=== PATIENT | female | born 1995 | race Caucasian/White ===

== ENCOUNTER 2022-02-17 20:49 | Emergency (ER) | payer OTHER, MEDICAID, SELFPAY ==
[2022-02-17 21:02] VITALS: BP 144/65; PULSE 81; RESP 18; TEMP 36.6; O2SAT 99; BMI 39.4
[2022-02-17 21:45] LABS: Add Manual Diff / Slide Review NO; Basophils Absolute Auto 0 /uL (0-100); Basophils Percent Auto 0.3 % (0-2); Eosinophils Absolute Auto 100 /uL (0-450); Eosinophils Percent Auto 1.3 % (2-4); Hematocrit 40.4 % (36-46); Hemoglobin 13.6 g/dL (12.0-16.0); Lymphocytes Absolute Auto 2700 /uL (1100-4500); Lymphocytes Percent Auto 30.3 % (25-40); Mean Corpuscular HGB Conc 33.6 % (30-36); Mean Corpuscular Hemoglobin 29.6 PG (26-34); Monocytes Absolute Auto 700 /uL (0-900); Monocytes Percent Auto 7.5 % (3-14); Neutrophils Absolute Auto 5300 /uL (1500-7000); Neutrophils Percent Auto 60.6 % (50-75); Platelet Count 425 X10^3/uL (150-400); Red Blood Cell Count 4.58 X10^6/uL (4.0-5.2); Red Cell Distribution Width 13.4 % (11.6-14.8); White Blood Cell Count 8.8 X10^3/uL (4.5-11.0)
[2022-02-17 22:00] LABS: Acetaminophen < 10 ug/mL (10-30); Alanine Aminotransferase 35 IU/L (<35); Albumin Globulin Ratio 1.5 (1.0-2.8); Alkaline Phosphatase 46 U/L (38-126); Aspartate Aminotransferase 32 IU/L (14-36); Bilirubin Total 0.4 mg/dL (0.2-1.3); Blood Urea Nitrogen 12 mg/dL (7-17); Calcium 9.3 mg/dL (8.4-10.2); Carbon Dioxide 29 mmol/L (22-32); Chloride 103 mmol/L (98-107); Estimated Glomerular Filt Rate > 60 mL/min (>60); Ethanol (ETOH) < 10 mg/dL; Globulin 3.4 g/dL (1.7-4.1); Glucose 96 mg/dL (70-100); HEMOLYSIS < 15 (0-50); Potassium 3.8 mmol/L (3.4-5.1); Salicylate < 1.0 mg/dL (<20); Sodium 140 mmol/L (137-145); Total Protein 8.4 g/dL (6.3-8.2)
[2022-02-17 22:19] LABS: Free T4, Direct Thyroxine 1.13 ng/dL (0.78-2.19)
[2022-02-17 22:33] LABS: Thyroid Stimulating Hormone 1.18 uIU/mL (0.47-4.68)
[2022-02-17 22:49] LABS: COVID19 -Nasal RAPID Negative (Negative)
[2022-02-18 01:12] LABS: UR Morphine/Opiate cutoff 300 Negative (Negative); Ur Creatinine Normal (Normal); Ur Specific Gravity Normal (Normal); Urine Amphetamines Negative (Negative); Urine Barbiturates Negative (Negative); Urine Benzodiazepines Negative (Negative); Urine Cocaine Negative (Negative); Urine MDMA Negative (Negative); Urine Methadone Negative (Negative); Urine Methamphetamines Negative (Negative); Urine Oxycodone Negative (Negative); Urine Phencyclidine Negative (Negative); Urine Tetrahydrocannabinol Positive (Negative); Urine Tricyclic Antidepressant Negative (Negative); Urine pH Normal (Normal)
[2022-02-18 01:19] LABS: Bacteria Urine Many (>30); RBC Urine None Seen (0-5/HPF); Squamous Epithelial Cell Urine 1-5 /HPF (0-5/HPF); WBC Urine 1-5/HPF (0-5/HPF)
--- NOTE | 2022-02-18 01:33 | ED.PSYCH ---
HPI - Psych <Dustin Cruz DO - Last Filed: 02/18/22 19:31> General Chief Complaint: Psychiatric Symptoms Stated Complaint: Anxiety attack Time Seen by Provider: 02/17/22 20:58 Source: patient Mode of arrival: Ambulatory History of Present Illness HPI Narrative: 26-year-old female daily smoker with history of anxiety states that she is having suicidal ideation with a plan. She has a history of anxiety and has been having increased ?attacks for the past week, this is certainly contributing to her suicidal ideation, her plans include anything from jumping off a bridge, to crashing her car to overdose among others. She is unclear exactly what made her feel profoundly anxious but she is rather certain this is contributing to her suicidal ideation. She has made prior attempts at hurting herself but is very reluctant to discuss with much detail but states nobody else new. She denies any prior hospitalizations or visits to the emergency department for suicidal ideation. She is here of her own volition and wants help controlling her anxiety and suicidal thoughts Related Data Home Medications Medication Instructions Recorded Confirmed No Known Home Medications 02/17/22 02/17/22 Allergies Allergy/AdvReac Type Severity Reaction Status Date / Time No Known Drug Allergies Allergy Verified 02/17/22 21:09 Patient History <Dustin Cruz DO - Last Filed: 02/18/22 19:31> Social History Smoking Status: Current every day smoker Smoking Status: Current every day smoker alcohol intake frequency: holidays/special occasions only Substance Use Type: marijuana Exam <Dustin Cruz DO - Last Filed: 02/18/22 19:31> Narrative Exam Narrative: GENERAL: [26] year old patient appears stated age. Well-developed patient, in mild distress. HEAD: Atraumatic. Normocephalic. EYES: Pupils equal round and reactive. Extraocular motions intact. No scleral icterus. No injection or drainage. ENT: Nose without bleeding, purulent drainage. Throat without erythema, tonsillar hypertrophy or exudate. Airway patent. NECK: Trachea midline. Non tender CARDIOVASCULAR: Regular rate and rhythm without murmurs, gallops, or rubs. RESPIRATORY: Clear to auscultation. Breath sounds equal bilaterally. No wheezes, rales, or rhonchi. GASTROINTESTINAL: Abdomen soft, non-tender, nondistended. EXTREMITIES: No edema or joint tenderness. BACK: Nontender without deformity or crepitance. No flank tenderness. NEURO: AOx3. SKIN: No rash or erythema of visible areas Initial Vital Signs Initial Vital Signs: Vital Signs Temperature 98 F 02/17/22 21:02 Pulse Rate 81 02/17/22 21:02 Respiratory Rate 18 02/17/22 21:02 Blood Pressure 144/65 H 02/17/22 21:02 Pulse Oximetry 99 02/17/22 21:02 <Sandrita Adam, DO - Last Filed: 02/18/22 17:49> Initial Vital Signs Initial Vital Signs: Vital Signs Temperature 98 F 02/17/22 21:02 Pulse Rate 81 02/17/22 21:02 Respiratory Rate 18 02/17/22 21:02 Blood Pressure 144/65 H 02/17/22 21:02 Pulse Oximetry 99 02/17/22 21:02 Course <Dustin Cruz DO - Last Filed: 02/18/22 19:31> Orders Ordered: ED Orders 02/17/22 21:36 Acetaminophen Stat Complete Blood Count AUTO DIFF Stat Comprehensive Metabolic Panel Stat Ethanol (ETOH) Stat Free T4, Direct Thyroxine Stat Salicylate Stat Thyroid Stimulating Hormone Stat 02/17/22 21:58 COVID19 -Nasal RAPID/Pre-Proc Stat 02/18/22 00:55 Urine Culture Stat Urine Drug Screen, Rapid Stat Urine Microscopic Stat 02/18/22 01:44 Consult to MEDICAL SERVICE REPRESENTATIVE - Electronics Technology Instructor Stat Reevaluation(s) Reevaluation #1: patient is resting comfortably. She is medically cleared and appropriate for MEDICAL SERVICE REPRESENTATIVE evaluation Time: 00:55 Vital Signs Vital signs: Vital Signs - 8 hr 02/18/22 13:55 02/18/22 16:39 Temperature 97.7 F 97.9 F Pulse Rate 70 80 Respiratory Rate 16 18 Blood Pressure 117/69 110/70 Pulse Oximetry 99 98 <Sandrita Adam DO - Last Filed: 02/18/22 17:49> Orders Ordered: ED Orders 02/17/22 21:36 Acetaminophen Stat Complete Blood Count AUTO DIFF Stat Comprehensive Metabolic Panel Stat Ethanol (ETOH) Stat Free T4, Direct Thyroxine Stat Salicylate Stat Thyroid Stimulating Hormone Stat 02/17/22 21:58 COVID19 -Nasal RAPID/Pre-Proc Stat 02/18/22 00:55 Urine Culture Stat Urine Drug Screen, Rapid Stat Urine Microscopic Stat 02/18/22 01:44 Consult to MEDICAL SERVICE REPRESENTATIVE - Electronics Technology Instructor Stat Reevaluation(s) Reevaluation #2: Patient seen independently evaluated by myself. Patient was seen by social work, currently searching for voluntary placement. For mental health social worker had to leave unexpectedly due to an emergency and ups her mental health social worker is taking over care. Currently searching for bed availability. Patient is medically cleared. Discussed with patient she is interested in voluntary placement. If bed availability is not present today she is unsure if she would wish to return home or keep searching overnight and into tomorrow. We discussed we can revisit this if we are unsuccessful in finding placement today. She is currently agreeable with this plan. All questions answered. Time: 15:44 Vital Signs Vital signs: Vital Signs - 8 hr 02/18/22 13:55 02/18/22 16:39 Temperature 97.7 F 97.9 F Pulse Rate 70 80 Respiratory Rate 16 18 Blood Pressure 117/69 110/70 Pulse Oximetry 99 98 MDM - Psych <Dustin Cruz, - Last Filed: 02/18/22 19:31> Lab Data Result diagrams: 02/17/22 21:36 02/17/22 21:36 Labs: Lab Results 02/17/22 02/17/22 02/17/22 Range/Units 21:36 21:36 21:36 WBC 8.8 (4.5-11.0) X10^3/uL RBC 4.58 (4.0-5.2) X10^6/uL Hgb 13.6 (12.0-16.0) g/dL Hct 40.4 (36-46) % MCV 88.0 (80-100) fL MCH 29.6 (26-34) PG MCHC 33.6 (30-36) % RDW 13.4 (11.6-14.8) % Plt Count 425 H (150-400) X10^3/uL Neut % (Auto) 60.6 (50-75) % Lymph % (Auto) 30.3 (25-40) % Hall % (Auto) 7.5 (3-14) % Eos % (Auto) 1.3 L (2-4) % Baso % (Auto) 0.3 (0-2) % Neut # (Auto) 5300 (5874-2156) /uL Lymph # (Auto) 2700 (4058-2317) /uL Hall # (Auto) 700 (0-900) /uL Eos # (Auto) 100 (0-450) /uL Baso # (Auto) 0 (0-100) /uL Sodium 140 (137-145) mmol/L Potassium 3.8 (3.4-5.1) mmol/L Chloride 103 (98-107) mmol/L Carbon Dioxide 29 (22-32) mmol/L BUN 12 (7-17) mg/dL Creatinine 0.60 (0.52-1.04) mg/dL Estimated GFR > 60 (>60) mL/min BUN/Creatinine Ratio 20.0 (6-22) Glucose 96 (70-100) mg/dL Calcium 9.3 (8.4-10.2) mg/dL Total Bilirubin 0.4 (0.2-1.3) mg/dL AST 32 (14-36) IU/L ALT 35 H (<35) IU/L Alkaline Phosphatase 46 (38-126) U/L Total Protein 8.4 H (6.3-8.2) g/dL Albumin 5.0 (3.5-5.0) g/dL Globulin 3.4 (1.7-4.1) g/dL Albumin/Globulin Ratio 1.5 (1.0-2.8) TSH 1.18 (0.47-4.68) uIU/mL Free T4 1.13 (0.78-2.19) ng/dL Urine RBC (0-5/HPF) Urine WBC (0-5/HPF) Ur Squamous Epith Cells (0-5/HPF) Urine Bacteria (None) Ur Culture Indicated? Salicylates < 1.0 (<20) mg/dL U Opiates 300ng/mL cut (Negative) Ur Oxycodone Screen (Negative) Urine Methadone Screen (Negative) Acetaminophen < 10 (10-30) ug/mL Ur Barbiturates Screen (Negative) U Tricyclic Antidepress (Negative) Ur Phencyclidine Scrn (Negative) Ur Amphetamines Screen (Negative) U Methamphetamines Scrn (Negative) Ur MDMA Scrn (Ecstasy) (Negative) U Benzodiazepines Scrn (Negative) Urine Cocaine Screen (Negative) U Marijuana (THC) Screen (Negative) Ethyl Alcohol < 10 ( - 10) mg/dL SARS-CoV-2 (PCR) (Negative) 02/17/22 02/18/22 02/18/22 Range/Units 21:58 00:55 00:55 WBC (4.5-11.0) X10^3/uL RBC (4.0-5.2) X10^6/uL Hgb (12.0-16.0) g/dL Hct (36-46) % MCV (80-100) fL MCH (26-34) PG MCHC (30-36) % RDW (11.6-14.8) % Plt Count (150-400) X10^3/uL Neut % (Auto) (50-75) % Lymph % (Auto) (25-40) % Hall % (Auto) (3-14) % Eos % (Auto) (2-4) % Baso % (Auto) (0-2) % Neut # (Auto) (3062-0903) /uL Lymph # (Auto) (5603-8236) /uL Hall # (Auto) (0-900) /uL Eos # (Auto) (0-450) /uL Baso # (Auto) (0-100) /uL Sodium (137-145) mmol/L Potassium (3.4-5.1) mmol/L Chloride (98-107) mmol/L Carbon Dioxide (22-32) mmol/L BUN (7-17) mg/dL Creatinine (0.52-1.04) mg/dL Estimated GFR (>60) mL/min BUN/Creatinine Ratio (6-22) Glucose (70-100) mg/dL Calcium (8.4-10.2) mg/dL Total Bilirubin (0.2-1.3) mg/dL AST (14-36) IU/L ALT (<35) IU/L Alkaline Phosphatase (38-126) U/L Total Protein (6.3-8.2) g/dL Albumin (3.5-5.0) g/dL Globulin (1.7-4.1) g/dL Albumin/Globulin Ratio (1.0-2.8) TSH (0.47-4.68) uIU/mL Free T4 (0.78-2.19) ng/dL Urine RBC None seen (0-5/HPF) Urine WBC 1-5/hpf (0-5/HPF) Ur Squamous Epith Cells 1-5 /hpf (0-5/HPF) Urine Bacteria Many (>30) H (None) Ur Culture Indicated? Culture not indicate Salicylates (<20) mg/dL U Opiates 300ng/mL cut Negative (Negative) Ur Oxycodone Screen Negative (Negative) Urine Methadone Screen Negative (Negative) Acetaminophen (10-30) ug/mL Ur Barbiturates Screen Negative (Negative) U Tricyclic Antidepress Negative (Negative) Ur Phencyclidine Scrn Negative (Negative) Ur Amphetamines Screen Negative (Negative) U Methamphetamines Scrn Negative (Negative) Ur MDMA Scrn (Ecstasy) Negative (Negative) U Benzodiazepines Scrn Negative (Negative) Urine Cocaine Screen Negative (Negative) U Marijuana (THC) Screen Positive H (Negative) Ethyl Alcohol ( - 10) mg/dL SARS-CoV-2 (PCR) Negative (Negative) Point of Care Testing Test Results Negative Urine Dip Bedside Urine Glucose Negative Bedside Urine Bilirubin - Negative Bedside Urine Ketone - Negative Urine Specific [place] 1.015 Bedside Urine Occult Blood - Negative Bedside Urine pH 6.0 Bedside Urine Protein - Negative Bedside Urine Urobilinogen - Negative Bedside Urine Nitrite + Positive Bedside Urine Leukocytes - Negative Esterase MDM Narrative Medical decision making narrative: 0700 - signed out to Dr. Adam for final disposition, awaiting MEDICAL SERVICE REPRESENTATIVE consultation <Sandrita Adam, - Last Filed: 02/18/22 17:49> Lab Data Labs: Lab Results 02/17/22 02/17/22 02/17/22 Range/Units 21:36 21:36 21:36 WBC 8.8 (4.5-11.0) X10^3/uL RBC 4.58 (4.0-5.2) X10^6/uL Hgb 13.6 (12.0-16.0) g/dL Hct 40.4 (36-46) % MCV 88.0 (80-100) fL MCH 29.6 (26-34) PG MCHC 33.6 (30-36) % RDW 13.4 (11.6-14.8) % Plt Count 425 H (150-400) X10^3/uL Neut % (Auto) 60.6 (50-75) % Lymph % (Auto) 30.3 (25-40) % Hall % (Auto) 7.5 (3-14) % Eos % (Auto) 1.3 L (2-4) % Baso % (Auto) 0.3 (0-2) % Neut # (Auto) 5300 (5173-8325) /uL Lymph # (Auto) 2700 (9985-7203) /uL Hall # (Auto) 700 (0-900) /uL Eos # (Auto) 100 (0-450) /uL Baso # (Auto) 0 (0-100) /uL Sodium 140 (137-145) mmol/L Potassium 3.8 (3.4-5.1) mmol/L Chloride 103 (98-107) mmol/L Carbon Dioxide 29 (22-32) mmol/L BUN 12 (7-17) mg/dL Creatinine 0.60 (0.52-1.04) mg/dL Estimated GFR > 60 (>60) mL/min BUN/Creatinine Ratio 20.0 (6-22) Glucose 96 (70-100) mg/dL Calcium 9.3 (8.4-10.2) mg/dL Total Bilirubin 0.4 (0.2-1.3) mg/dL AST 32 (14-36) IU/L ALT 35 H (<35) IU/L Alkaline Phosphatase 46 (38-126) U/L Total Protein 8.4 H (6.3-8.2) g/dL Albumin 5.0 (3.5-5.0) g/dL Globulin 3.4 (1.7-4.1) g/dL Albumin/Globulin Ratio 1.5 (1.0-2.8) TSH 1.18 (0.47-4.68) uIU/mL Free T4 1.13 (0.78-2.19) ng/dL Urine RBC (0-5/HPF) Urine WBC (0-5/HPF) Ur Squamous Epith Cells (0-5/HPF) Urine Bacteria (None) Ur Culture Indicated? Salicylates < 1.0 (<20) mg/dL U Opiates 300ng/mL cut (Negative) Ur Oxycodone Screen (Negative) Urine Methadone Screen (Negative) Acetaminophen < 10 (10-30) ug/mL Ur Barbiturates Screen (Negative) U Tricyclic Antidepress (Negative) Ur Phencyclidine Scrn (Negative) Ur Amphetamines Screen (Negative) U Methamphetamines Scrn (Negative) Ur MDMA Scrn (Ecstasy) (Negative) U Benzodiazepines Scrn (Negative) Urine Cocaine Screen (Negative) U Marijuana (THC) Screen (Negative) Ethyl Alcohol < 10 ( - 10) mg/dL SARS-CoV-2 (PCR) (Negative) 02/17/22 02/18/22 02/18/22 Range/Units 21:58 00:55 00:55 WBC (4.5-11.0) X10^3/uL RBC (4.0-5.2) X10^6/uL Hgb (12.0-16.0) g/dL Hct (36-46) % MCV (80-100) fL MCH (26-34) PG MCHC (30-36) % RDW (11.6-14.8) % Plt Count (150-400) X10^3/uL Neut % (Auto) (50-75) % Lymph % (Auto) (25-40) % Hall % (Auto) (3-14) % Eos % (Auto) (2-4) % Baso % (Auto) (0-2) % Neut # (Auto) (6293-4878) /uL Lymph # (Auto) (7874-9466) /uL Hall # (Auto) (0-900) /uL Eos # (Auto) (0-450) /uL Baso # (Auto) (0-100) /uL Sodium (137-145) mmol/L Potassium (3.4-5.1) mmol/L Chloride (98-107) mmol/L Carbon Dioxide (22-32) mmol/L BUN (7-17) mg/dL Creatinine (0.52-1.04) mg/dL Estimated GFR (>60) mL/min BUN/Creatinine Ratio (6-22) Glucose (70-100) mg/dL Calcium (8.4-10.2) mg/dL Total Bilirubin (0.2-1.3) mg/dL AST (14-36) IU/L ALT (<35) IU/L Alkaline Phosphatase (38-126) U/L Total Protein (6.3-8.2) g/dL Albumin (3.5-5.0) g/dL Globulin (1.7-4.1) g/dL Albumin/Globulin Ratio (1.0-2.8) TSH (0.47-4.68) uIU/mL Free T4 (0.78-2.19) ng/dL Urine RBC None seen (0-5/HPF) Urine WBC 1-5/hpf (0-5/HPF) Ur Squamous Epith Cells 1-5 /hpf (0-5/HPF) Urine Bacteria Many (>30) H (None) Ur Culture Indicated? Culture not indicate Salicylates (<20) mg/dL U Opiates 300ng/mL cut Negative (Negative) Ur Oxycodone Screen Negative (Negative) Urine Methadone Screen Negative (Negative) Acetaminophen (10-30) ug/mL Ur Barbiturates Screen Negative (Negative) U Tricyclic Antidepress Negative (Negative) Ur Phencyclidine Scrn Negative (Negative) Ur Amphetamines Screen Negative (Negative) U Methamphetamines Scrn Negative (Negative) Ur MDMA Scrn (Ecstasy) Negative (Negative) U Benzodiazepines Scrn Negative (Negative) Urine Cocaine Screen Negative (Negative) U Marijuana (THC) Screen Positive H (Negative) Ethyl Alcohol ( - 10) mg/dL SARS-CoV-2 (PCR) Negative (Negative) Point of Care Testing Test Results Negative Urine Dip Bedside Urine Glucose Negative Bedside Urine Bilirubin - Negative Bedside Urine Ketone - Negative Urine Specific [place] 1.015 Bedside Urine Occult Blood - Negative Bedside Urine pH 6.0 Bedside Urine Protein - Negative Bedside Urine Urobilinogen - Negative Bedside Urine Nitrite + Positive Bedside Urine Leukocytes - Negative Esterase MDM Narrative Medical decision making narrative: 0700 - signed out to Dr. Adam for final disposition, awaiting MEDICAL SERVICE REPRESENTATIVE consultation 02/18/22 (Jair) Patient signed out to myself by Dr. Cruz. Patient has been having anxiety attacks, depression which fueled suicidal thoughts. She has some vague plans in place such as driving her car off a bridge, causing an accident, overdosing but does not have specific set plan in place. She has never been hospitalized for psychiatric issues. She was seen by our MEDICAL SERVICE REPRESENTATIVE they had discussion and fell voluntary placement would be interested and patient seeking that at this time. Currently searching for bed availability. 1630: Patient accepted at [facility] by JONATHAN Santana for transfer for suicidal ideation, anxiety and depression. Patient is agreeable with this plan. Transport was arranged and patient transferred to [facility]. Discharge Plan Departure Patient Disposition: Xfer Psychiatric Hosp Clinical Impression: Suicidal ideation, Anxiety ED Sign-out <Dustin Cruz DO - Last Filed: 02/18/22 19:31> Cosign ED Attending Cosrosmeryature Attestation: I was immediately available in the department for consultation. This documentation has been reviewed and I agree with assessment and plan. Supervised by Dustin Cruz DO
[2022-02-18 07:07] VITALS: BP 117/62; PULSE 74; RESP 20; O2SAT 99
[2022-02-18 13:55] VITALS: BP 117/69; PULSE 70; RESP 16; TEMP 36.5; O2SAT 99
[2022-02-18 16:39] VITALS: BP 110/70; PULSE 80; RESP 18; TEMP 36.6; O2SAT 98
--- NOTE | 2022-02-18 16:40 | PC.NURSE ---
report to robert greene [phone]
== END 2022-02-18 16:56 ==
PROVIDERS: Emergency Medicine; Emergency Provider Emergency Medicine
DX: R45.851 Suicidal ideations (principal); F41.9 Anxiety disorder, unspecified; F32.A Depression, unspecified; F17.200 Nicotine dependence, unspecified, uncomplicated; Z20.822 Contact with and (suspected) exposure to COVID-19
CPT/HCPCS: 36415; 80053; 80305; 80320; 80329; 81003; 81015; 81025; 84439; 84443; 85025; 87077; 87086; 87186; 87635; 99283; 99284; C9803; G0480